=== PATIENT | female | born 1995 | race Caucasian/White ===

== ENCOUNTER 2022-12-09 06:04 | Emergency (ER) | payer SELFPAY ==
[~2022-12-09] VITALS: Ht 162.6 cm; Wt 53.1 kg
[2022-12-09] MEDS ORDERED: IV NS 0.9% 1,000 ML BAG IV ONE (06:30)
[2022-12-09] MEDS ORDERED: MORPHINE SULFATE INJ 2 MG/ML DISP.SYRIN IV ONE (06:30)
[2022-12-09] MEDS ORDERED: MORPHINE SULFATE INJ 4 MG/ML DISP.SYRIN ONE (06:37)
[2022-12-09] MEDS ORDERED: ONDANSETRON HCL/PF 4 MG/2 ML VIAL ONE (06:43)
[2022-12-09] MEDS ORDERED: ONDANSETRON HCL/PF - ER 4 MG/2 ML VIAL IV ONE (07:00)
[2022-12-09 07:03] LABS: BASOPHILS % (AUTO) 0.2 % (0.0-2.0); EOSINOPHILS % (AUTO) 0.2 % (0.0-6.0); HEMATOCRIT 32 % (33-45); HEMOGLOBIN 10.9 g/dL (11.5-14.8); LYMPHOCYTES # (AUTO) 1.5 K/uL (0.8-4.8); LYMPHOCYTES % (AUTO) 13.7 % (20.0-44.0); MEAN CORPUSCULAR HEMOGLOBIN 29 PG (26.0-33.0); MEAN CORPUSCULAR HGB CONC 34 g/dl (31.0-36.0); MEAN CORPUSCULAR VOLUME 87 fL (82-100); MONOCYTES # (AUTO) 0.7 K/uL (0.1-1.30); MONOCYTES % (AUTO) 6.4 % (2.0-12.0); NEUTROPHILS # (AUTO) 8.6 K/uL (1.8-8.9); NEUTROPHILS % (AUTO) 79.5 % (43.0-81.0); PLATELET COUNT (AUTO) 483 K/uL (150-450); RED BLOOD CELL COUNT(AUTO) 3.71 MIL/uL (4.0-5.2); RED CELL DISTRIBUTION WIDTH 13.6 % (11.5-15.0); WHITE BLOOD COUNT (AUTO) 10.9 K/uL (4.3-11.0)
[2022-12-09 07:44] LABS: CALCIUM, SERUM 9.9 mg/dL (8.5-10.1); POTASSIUM 3.1 mmol/L (3.5-5.1)
[2022-12-09 07:50] LABS: ALBUMIN 4.5 g/dL (3.4-5.0); BILIRUBIN,DIRECT 0.1 mg/dL (0.0-0.2); BILIRUBIN,TOTAL 0.2 mg/dL (0.2-1.0)
[2022-12-09 08:28] VITALS: BP 129/75; TEMP 98; O2SAT 100
[2022-12-09 08:39] LABS: APPEARANCE,URINE CLEAR (CLEAR); BILIRUBIN,URINE NEGATIVE (NEGATIVE); BLOOD, URINE NEGATIVE Ery/uL (NEGATIVE); COLOR,URINE YELLOW (YELLOW); KETONES,URINE TRACE mg/dL (NEGATIVE); LEUKOCYTE ESTERASE ,URINE NEGATIVE (NEGATIVE); NITRITE, URINE NEGATIVE (NEGATIVE); PH,URINE >9.0 (5.0-8.0); PROTEIN,URINE NEGATIVE (NEGATIVE); UGLUCOSE NEGATIVE (NEGATIVE); UROBILINOGEN,URINE 0.2 EU/dL (0.2)
[2022-12-09 08:41] LABS: PREGNANCY TEST URINE QUAL NEGATIVE (NEGATIVE)
[2022-12-09 09:11] LABS: RBC,URINE NONE SEEN /HPF (0-2); WBC,URINE NONE SEEN /HPF (0-3)
[2022-12-09 09:12] LABS: ADD URINE CULTURE NO; BACTERIA,URINE None seen /HPF (None Seen)
== END 2022-12-09 08:29 | disposition home or self-care (01) ==
LOC: ER 06:08
DX: R10.84 Generalized abdominal pain (principal); Z91.040 Latex allergy status
CPT/HCPCS: 99284; 96374; 96361; 96375; 85025; 80048; 83690; 80076; 84703; 81001; 36415; J2270; J2405 ×2; J7030; A4223

== ENCOUNTER 2023-07-25 08:10 | Emergency (ER) | payer OTHER ==
[~2023-07-25] VITALS: Ht 162.6 cm; Wt 52.2 kg
[2023-07-25] MEDS ORDERED: ONDANSETRON HCL/PF 4 MG/2 ML VIAL ONE (08:26)
[2023-07-25] MEDS ORDERED: MORPHINE SULFATE INJ 4 MG/ML DISP.SYRIN ONE ×2 (08:26→10:28)
[2023-07-25] MEDS: ONDANSETRON HCL/PF 4 MG/2 ML VIAL IVP ONE (08:39)
[2023-07-25] MEDS: MORPHINE SULFATE INJ 2 MG/ML DISP.SYRIN IV ONE ×2 (08:39→10:30)
[2023-07-25] MEDS: IV NS 0.9% 1,000 ML BAG IV ONE (08:39)
[2023-07-25 08:48] LABS: BASOPHILS % (AUTO) 0.3 % (0.0-2.0); EOSINOPHILS % (AUTO) 0.2 % (0.0-6.0); HEMATOCRIT 43 % (33-45); HEMOGLOBIN 14.3 g/dL (11.5-14.8); LYMPHOCYTES # (AUTO) 2.2 K/uL (0.8-4.8); LYMPHOCYTES % (AUTO) 19.7 % (20.0-44.0); MEAN CORPUSCULAR HEMOGLOBIN 31 PG (26.0-33.0); MEAN CORPUSCULAR HGB CONC 34 g/dl (31.0-36.0); MEAN CORPUSCULAR VOLUME 91 fL (82-100); MONOCYTES # (AUTO) 0.6 K/uL (0.1-1.30); MONOCYTES % (AUTO) 5.3 % (2.0-12.0); NEUTROPHILS # (AUTO) 8.3 K/uL (1.8-8.9); NEUTROPHILS % (AUTO) 74.5 % (43.0-81.0); PLATELET COUNT (AUTO) 483 K/uL (150-450); RED CELL DISTRIBUTION WIDTH 13.2 % (11.5-15.0); WHITE BLOOD COUNT (AUTO) 11.1 K/uL (4.3-11.0)
[2023-07-25 09:08] LABS: CALCIUM, SERUM 10.6 mg/dL (8.5-10.1); CREATININE 0.8 mg/dL (0.6-1.3); POTASSIUM 3.6 mmol/L (3.5-5.1)
[2023-07-25] MEDS ORDERED: FAMOTIDINE/PF INJ 20 MG/2 ML VIAL IV ONE (09:13)
[2023-07-25 09:14] LABS: ALBUMIN 4.5 g/dL (3.4-5.0); BILIRUBIN,DIRECT 0.1 mg/dL (0.0-0.2); BILIRUBIN,TOTAL 0.3 mg/dL (0.2-1.0)
[2023-07-25] MEDS: FAMOTIDINE/PF INJ 20 MG/2 ML VIAL IV ONE (09:16)
[2023-07-25 10:26] LABS: APPEARANCE,URINE Clear (CLEAR); BILIRUBIN,URINE Negative (NEGATIVE); BLOOD, URINE Trace-intact Ery/uL (NEGATIVE); COLOR,URINE YELLOW (YELLOW); KETONES,URINE 40 mg/dL (NEGATIVE); LEUKOCYTE ESTERASE ,URINE Negative (NEGATIVE); NITRITE, URINE Negative (NEGATIVE); PROTEIN,URINE Trace mg/dl (NEGATIVE); UGLUCOSE Negative (NEGATIVE); UROBILINOGEN,URINE 0.2 EU/dL (0.2)
[2023-07-25 10:31] LABS: PREGNANCY TEST URINE QUAL NEGATIVE (NEGATIVE)
[2023-07-25 10:42] LABS: ADD URINE CULTURE NO; BACTERIA,URINE Few /HPF (None Seen); RBC,URINE 0-2 /HPF (0-2); SQUAMOUS EPITHELIAL CELL,UR Few /HPF (None Seen); WBC,URINE 0-2 /HPF (0-3)
[2023-07-25] MEDS ORDERED: ONDA4TAB5 PO (11:35)
[2023-07-25 11:41] VITALS: BP 132/64; TEMP 98.9; O2SAT 98
== END 2023-07-25 11:45 | disposition home or self-care (01) ==
LOC: ER 08:20
DX: R10.84 Generalized abdominal pain (principal); R11.10 Vomiting, unspecified; M04.1 Periodic fever syndromes; M35.2 Behcet's disease; Z88.8 Allergy status to other drugs, medicaments and biological substances
CPT/HCPCS: 99284; 96374; 96375; 96361; 85025; 80048; 83690; 80076; 84703; 81001; 36415; J2270 ×2; J3490; J2405; J7030